=== PATIENT | male | born 1980 | race Two or more races ===

== ENCOUNTER 2017-03-24 07:22 | Emergency (ER) | payer SELFPAY ==
[~2017-03-24] VITALS: Ht 177.8 cm; Wt 81.6 kg
[2017-03-24 08:05] LABS: BASO % 1 % (0-3); EOS % 2 % (0-3); HEMATOCRIT 37.1 % (39.0-53.0); LYMPH # 2.5 x10^3/uL (1.0-4.8); LYMPH % 31 % (24-48); MEAN CORPUSCULAR HEMOGLOBIN 30 pg (25-35); MEAN CORPUSCULAR HGB CONC 35 g/dL (31-37); MEAN CORPUSCULAR VOLUME 86 fL (79-100); MONO % 6 % (0-9); NEUT % 61 % (31-73); PLATELET COUNT 258 x10^3/uL (140-400); RED BLOOD COUNT 4.31 x10^6/uL (4.30-5.70); RED CELL DISTRIBUTION WIDTH 14.5 % (11.5-14.5); WHITE BLOOD COUNT 8.2 x10^3/uL (4.0-11.0)
[2017-03-24 08:06] LABS: BILIRUBIN,URINE NEGATIVE (NEG); GLUCOSE,URINE NEGATIVE (NEG); NITRITE,URINE NEGATIVE (NEG); PH,URINE 5.5; PROTEIN,URINE NEGATIVE (NEG-TRACE); UROBILINOGEN,URINE 0.2 mg/dL (0.2 mg/dL)
[2017-03-24 08:19] LABS: CALCIUM 7.8 mg/dL (8.5-10.1); CREATININE 1.1 mg/dL (0.7-1.3); GFR 75.7; POTASSIUM 4.1 mmol/L (3.5-5.1)
[2017-03-24] MEDS ORDERED: IV NORMAL SALINE 1000ML BAG 1,000 ML IV SCH (08:22)
[2017-03-24 08:25] LABS: ALBUMIN 3.8 g/dL (3.4-5.0); ALBUMIN/GLOBULIN RATIO 1.1 (1.0-1.7); TOTAL BILIRUBIN 0.2 mg/dL (0.2-1.0); TOTAL PROTEIN 7.4 g/dL (6.4-8.2)
[2017-03-24 08:28] LABS: BACTERIA,URINE FEW /HPF (0-FEW); RBC,URINE RARE /HPF (0-2); SQUAMOUS EPITHELIAL CELL,UR FEW /LPF
[2017-03-24] MEDS ORDERED: fentaNYL PF VIAL 100 MCG/2 ML VIAL IV PRN (08:30)
[2017-03-24] MEDS ORDERED: ONDANSETRON PF 4 MG/2 ML VIAL. IV ONE (08:30)
--- NOTE | 2017-03-24 09:21 | RAD ---
Ultrasound of the abdomen 03/24/2017 Clinical history: Epigastric and right upper quadrant abdominal pain. Technique: A real-time ultrasound examination of the abdomen was performed. Multiple images were obtained. Findings: The gallbladder is well distended. Echogenic gallstones are seen within the gallbladder. The gallbladder wall thickness is within normal limits. No pericholecystic fluid is seen. The common bile duct measures 3 mm in diameter which is within normal limits. The liver is normal in size measuring 16.9 cm in length. No focal abnormality of the liver is seen. The visualized portions of the spleen and pancreas are within normal limits. Both kidneys are within normal limits in size and echogenicity. The abdominal aorta and inferior vena cava are not well visualized due to overlying bowel gas. No free fluid is seen. Impression: Cholelithiasis.
[2017-03-24] MEDS ORDERED: HYDR-971 PO (10:11)
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
[2017-03-24 10:20] VITALS: BP 127/71
[2017-03-24] MEDS ORDERED: HYDROcodone/APAP 5/325MG 1 TAB TABLET PO ONE (10:30)
== END 2017-03-24 10:42 | disposition home or self-care (01) ==
LOC: ER 07:22
DX: K80.70 Calculus of gallbladder and bile duct without cholecystitis without obstruction (principal)
CPT/HCPCS: 36415; 76700; 80053; 81001; 83690; 85025; 96361; 96374; 96375; 99285; J2405; J3010; J7030